=== PATIENT | female | born 1935 | race Caucasian/White ===

== ENCOUNTER 2022-02-24 12:31 | Emergency (ER) | payer OTHER ==
[~2022-02-24] VITALS: Ht 152.4 cm; Wt 45.4 kg
--- NOTE | 2022-02-24 12:35 | NUR ---
Patient to bed [facility].
[2022-02-24 12:53] VITALS: BP 123/62
--- NOTE | 2022-02-24 12:57 | NUR ---
86 y/o female biba from home, pt lives by herself, called arm to rpeort that she had fallen and hit her head. pt states she was rushing to bathroom and had a mechanical fall. denies syncope or loc. a&ox3, to baseline. pt has lac to top of her head. pt also states she is having abd pain 7/10 patient positioned for comfort. hob elevated. bed down. ermd made aware of pt. pmh: htn, glaucoma allergy: sulfa med: atenolol, amlodipine
[2022-02-24] MEDS ORDERED: LIDOCAINE MPF 1% 10 MG/ML VIAL INJ ONE (13:10)
[2022-02-24 13:50] LABS: BASOPHILS # (AUTO) 0.1 K/uL (0.00-0.22); BASOPHILS % (AUTO) 0.3 % (0.0-2.0); HEMATOCRIT 36.3 % (36-48); HEMOGLOBIN 11.9 g/dL (12.0-16.0); LYMPHOCYTES # (AUTO) 1.1 K/uL (2.5-16.5); LYMPHOCYTES % (AUTO) 5.2 % (20.5-51.1); MEAN CORPUSCULAR HEMOGLOBIN 33 pg (27-31); MEAN CORPUSCULAR HGB CONC 33 g/dL (33-37); MONOCYTES # (AUTO) 2.1 K/uL (0.8-1.0); MONOCYTES % (AUTO) 9.8 % (1.7-9.3); NEUTROPHILS # (AUTO) 18.1 K/uL (1.8-7.7); NEUTROPHILS % (AUTO) 84.7 % (42.2-75.2); PLATELET COUNT (AUTO) 405 K/uL (140-450); RED CELL DISTRIBUTION WIDTH 13.9 % (11.6-13.7); WHITE BLOOD COUNT (AUTO) 21.4 K/uL (4.8-10.8)
[2022-02-24 14:11] LABS: ALBUMIN 3.1 g/dL (3.4-5.0); ANION GAP 17.4 (8-16); ASPARTATE AMINOTRANSFERASE 24 U/L (15-37); CHLORIDE 100 mmol/L (98-107); CREATININE 0.8 mg/dL (0.6-1.3); GLUCOSE 121 mg/dL (74-106); POTASSIUM 4.4 mmol/L (3.5-5.1); SODIUM SERUM 135 mmol/L (136-145); TOTAL BILIRUBIN 0.5 mg/dL (0.0-1.0); UREA NITROGEN, BLOOD 24 mg/dL (7-18)
--- NOTE | 2022-02-24 16:21 | NUR ---
pt refusing to stay at this time or stay for further testing. jase notified, at bedside. pt is still refusing to stay at this time. pt will be leaving [facility]
--- NOTE | 2022-02-24 16:50 | NUR ---
spoke with orlin decker, caregiver with eta of 30 minutes, pt will be dx at this time
[2022-02-24 17:48] VITALS: BP 130/60
--- NOTE | 2022-02-24 17:49 | NUR ---
Patient discharged with v/s stable. Written and verbal after care instructions given and explained. Patient verbalized understanding. Assisted with caregiver orlin to car. All questions addressed prior to discharge. Advised to follow up with PMD. scrub pants given, pink shirt in bag given upon request
== END 2022-02-24 17:49 | disposition home or self-care (01) ==
LOC: MED 12:31
DX: S01.01XA Laceration without foreign body of scalp, initial encounter (principal); S89.92XA Unspecified injury of left lower leg, initial encounter; I10 Essential (primary) hypertension; H40.9 Unspecified glaucoma; M06.9 Rheumatoid arthritis, unspecified; Z79.899 Other long term (current) drug therapy; Z88.2 Allergy status to sulfonamides; Z98.890 Other specified postprocedural states; W18.30XA Fall on same level, unspecified, initial encounter; Y93.89 Activity, other specified; Y92.89 Other specified places as the place of occurrence of the external cause; Y99.8 Other external cause status
CPT/HCPCS: 36415; 70450; 73562; 80053; 84484; 85025; 90471; 90715; 93005; 99285; J2001